=== PATIENT | male | born 1945 | race Two or more races ===

== ENCOUNTER 2020-03-13 14:16 | Inpatient (IN) | payer OTHER, SELFPAY ==
[~2020-03-13] VITALS: Ht 172.7 cm; Wt 81.6 kg
[2020-03-13 14:19] VITALS: Ht 172.7 cm; Wt 81.6 kg
[2020-03-13 15:05] LABS: PLATELET COUNT 156 x10^3mcL (130-400); RED CELL DISTRIBUTION WIDTH 14.6 % (11.5-14.5)
[2020-03-13 15:37] LABS: CALCIUM 8.4 mg/dL (8.5-10.1); CARBON DIOXIDE 23.4 mmol/L (21-32); CHLORIDE SERUM 106 mmol/L (98-107); CREATININE SERUM 1.6 mg/dL (0.7-1.3); GLUCOSE SERUM 65 mg/dL (74-106); POTASSIUM SERUM 4.3 mmol/L (3.5-5.1); SODIUM SERUM 140 mmol/L (136-145)
[2020-03-13 15:49] LABS: ALBUMIN 3.6 g/dL (3.4-5.0); ALKALINE PHOSPHATASE 52 U/L (46-116); ALT/SGPT 22 U/L (16-63); AST/SGOT 19 U/L (15-37); BILIRUBIN TOTAL 0.2 mg/dL (0.20-1.00); HDL CHOLESTEROL 45 mg/dL (40-60); TOTAL PROTEIN, SERUM 7.4 g/dL (6.4-8.2)
[2020-03-13 15:53] LABS: CHOLESTEROL 125 mg/dL (<200)
[2020-03-13] MEDS ORDERED: INSULIN SYRING1 EA29 (16:21)
[2020-03-13] MEDS ORDERED: ACID REDUCER20 MG (16:21)
[2020-03-13] MEDS ORDERED: CARVEDILOL3.125 M1 GT (16:22)
[2020-03-13] MEDS ORDERED: ASPIR 8181 MG PO (16:22)
[2020-03-13] MEDS ORDERED: NIT0.3 SL (16:22)
[2020-03-13 17:54] LABS: CHOLESTEROL/HDL RATIO 2.8
[2020-03-13 17:58] VITALS: BP 122/68
[2020-03-13 19:40] VITALS: BP 95/62
[2020-03-14 06:24] VITALS: BP 123/69
[2020-03-14 06:34] LABS: BASOPHIL % 0.4 % (0-2)
[2020-03-14 07:03] LABS: CALCIUM 8.9 mg/dL (8.5-10.1); CARBON DIOXIDE 22.3 mmol/L (21-32); CHLORIDE SERUM 108 mmol/L (98-107); CREATININE SERUM 1.3 mg/dL (0.7-1.3); GLUCOSE SERUM 95 mg/dL (74-106); POTASSIUM SERUM 4.8 mmol/L (3.5-5.1); SODIUM SERUM 139 mmol/L (136-145)
[2020-03-14 07:16] LABS: T4(THYROXINE) 3.8 ug/dL (4.7-13.3)
[2020-03-14 07:31] LABS: PLATELET COUNT 125 x10^3mcL (130-400); RED CELL DISTRIBUTION WIDTH 14.7 % (11.5-14.5)
[2020-03-14 08:57] VITALS: BP 125/83
[2020-03-14 11:51] LABS: microscopic required? NO
[2020-03-14 12:19] LABS: UA SPECIFIC GRAVITY 1.015 (1.005-1.035); urine erythrocyte NEGATIVE (NEGATIVE)
[2020-03-14 12:48] VITALS: BP 122/54
[2020-03-14 13:19] LABS: AMPHETAMINE QUAL UR NONE DETECTED (See below)
[2020-03-14 16:11] VITALS: BP 138/62
[2020-03-14 19:46] VITALS: BP 141/95
[2020-03-15 04:05] LABS: RAPID PLASMA REAGIN Non Reactive (Non Reactive)
[2020-03-15 05:35] VITALS: BP 148/83
[2020-03-15 06:42] LABS: BASOPHIL % 0.7 % (0-2); RED CELL DISTRIBUTION WIDTH 14.3 % (11.5-14.5)
[2020-03-15 06:45] LABS: CARBON DIOXIDE 24.1 mmol/L (21-32); CHLORIDE SERUM 105 mmol/L (98-107); CREATININE SERUM 1.2 mg/dL (0.7-1.3); GLUCOSE SERUM 160 mg/dL (74-106); SODIUM SERUM 138 mmol/L (136-145)
[2020-03-15 06:58] LABS: PLATELET COUNT 123 x10^3mcL (130-400)
[2020-03-15 08:47] VITALS: BP 144/84
[2020-03-15 09:07] LABS: RHEUMATOID ARTHRITIS FACTOR <10.0 IU/mL (0.0-13.9)
[2020-03-15 11:47] VITALS: BP 143/69
[2020-03-15 18:15] VITALS: BP 154/70
[2020-03-15 19:45] VITALS: BP 141/78
[2020-03-16 05:00] VITALS: BP 139/88
[2020-03-16 05:39] VITALS: BP 183/95
[2020-03-16 08:45] VITALS: BP 157/79
[2020-03-16 12:03] VITALS: BP 113/80
[2020-03-16 16:52] VITALS: BP 149/74
[2020-03-16 21:49] VITALS: BP 154/79
[2020-03-17 06:07] VITALS: BP 155/80
[2020-03-17 08:59] VITALS: BP 115/79
[2020-03-17 12:06] VITALS: BP 115/71
[2020-03-17 16:19] VITALS: BP 115/71
[2020-03-17 17:17] VITALS: BP 138/82
== END 2020-03-17 19:37 | disposition short-term general hospital (02) | DRG 281 ==
LOC: ED 14:16 → DU 16:16
PROVIDERS: Emergency Medicine; ADMIT Internal Medicine; ATTEND Internal Medicine
DX: I35.0 Nonrheumatic aortic (valve) stenosis (principal); I21.4 Non-ST elevation (NSTEMI) myocardial infarction; N17.9 Acute kidney failure, unspecified; I13.0 Hypertensive heart and chronic kidney disease with heart failure and stage 1 through stage 4 chronic kidney disease, or unspecified chronic kidney disease; I50.9 Heart failure, unspecified; Z20.828 Contact with and (suspected) exposure to other viral communicable diseases; E86.0 Dehydration; E11.42 Type 2 diabetes mellitus with diabetic polyneuropathy; D64.9 Anemia, unspecified; I25.10 Atherosclerotic heart disease of native coronary artery without angina pectoris; N18.9 Chronic kidney disease, unspecified; E11.22 Type 2 diabetes mellitus with diabetic chronic kidney disease; Z87.891 Personal history of nicotine dependence; Z88.0 Allergy status to penicillin; Z79.4 Long term (current) use of insulin; Z79.899 Other long term (current) drug therapy
CPT/HCPCS: 82962; 86431; G0378; J1815; Q0092; U0003-CS

== ENCOUNTER 2020-08-07 08:10 | Day surgery (SDC) | payer OTHER ==
[~2020-08-07] VITALS: Ht 175.3 cm; Wt 56.7 kg
[~2020-08-07 08:10] MED LIST: ACID REDUCER20 MG; ASPIR 8181 MG PO; CARVEDILOL3.125 M1 GT; INSULIN SYRING1 EA29; NIT0.3 SL
[2020-08-07 09:31] VITALS: BP 139/74
[2020-08-07 15:58] VITALS: BP 112/84
== END 2020-08-07 14:10 | disposition home or self-care (01) ==
LOC: GI 08:10 → OR 12:00 → GI 14:10
PROVIDERS: ATTEND Internal Medicine Gastroenterology
DX: I85.00 Esophageal varices without bleeding (principal); I10 Essential (primary) hypertension; E11.9 Type 2 diabetes mellitus without complications; E78.5 Hyperlipidemia, unspecified; D64.9 Anemia, unspecified; Z95.1 Presence of aortocoronary bypass graft; Z85.46 Personal history of malignant neoplasm of prostate; Z86.19 Personal history of other infectious and parasitic diseases; Z79.84 Long term (current) use of oral hypoglycemic drugs; Z79.899 Other long term (current) drug therapy
CPT/HCPCS: 43235; J1200; J1610; J2250; J2310; J3010; J3370; J3490